=== PATIENT | male | born 1950 | race Caucasian/White ===

== ENCOUNTER 2019-09-01 07:54 | Outpatient (CLI) | payer MEDICARE, BC, SELFPAY ==
[2019-09-01 08:57] LABS: Basophils % 0.3 %; Eosinophils # 0.1 10^3/uL (0.0-0.8); Eosinophils % 1.4 %; Hematocrit 49.3 % (42.0-52.0); Hemoglobin 15.9 g/dL (11.7-16.6); Lymphocytes # 1.5 10^3/uL (0.8-4.8); Lymphocytes % 23.9 %; Mean Corpuscular HGB Conc 32.3 g/dL (30.0-36.0); Mean Corpuscular Hemoglobin 29.8 pg (28.0-34.0); Mean Corpuscular Volume 92.5 fL (80-94); Mean Platelet Volume 10.9 fL (7.4-10.4); Monocytes # 0.4 10^3/uL (0.2-0.9); Monocytes % 6.1 %; Neutrophils # 4.3 10^3/uL (1.8-7.7); Neutrophils % 68.1 %; Nucleated Red Blood Cells % 0 %; Platelet Count 202 10^3/cmm (130-400); Red Blood Count 5.33 10^6/uL (4.1-5.3); Red Cell Distribution Width 13.1 % (12.1-15.1); White Blood Count 6.4 10^3/uL (4.0-10.0)
[2019-09-01 09:19] LABS: Carcinoembryonic Antigen 2.8 ng/mL (0.0-4.7)
[2019-09-01 09:31] LABS: Alanine Aminotransferase 26 U/L (0-41); Albumin Level 4.2 g/dL (3.5-5.2); Alkaline Phosphatase 79 IU/L (40-130); Anion Gap 17.1 (5-19); Blood Urea Nitrogen 14 mg/dL (8-23); Calcium 8.9 mg/dL (8.5-10.5); Carbon Dioxide 23 mmol/L (22-29); Chloride 104 mmol/L (98-107); Chol HDL Ratio 2.79 mg/dL (1.0-5.00); Cholesterol 95 mg/dL (0-200); Globulin 2.7 g/dL (1.3-4.6); Glomerular Filtration Rate 74.1 mL/min (90-130); Glucose 121 mg/dL (65-115); HDL Cholesterol 34 mg/dL (60-100); LDL Cholesterol Calculated 47 mg/dL (50-129); LDL HDL Ratio 1.38 RATIO (0.00-3.22); Osmolality Calculated 287 mOsm/kg (285-295); Potassium 4.1 mmol/L (3.5-5.1); Sodium 140 mmol/L (136-145); Total Bilirubin 0.8 mg/dL (0.15-1.2); Total Protein 6.9 g/dL (6.6-8.7); Triglycerides 70 mg/dL (0-150)
[2019-09-01 09:48] LABS: Aspartate Amino Transferase 27 U/L (0-40)
--- NOTE | 2019-09-04 10:17 | ONC FU_ITS ---
Dr. Palomo Patient Follow-Up Note Patient: Payam Oliveros Unit #: [id number]: 1950 Dicatated By: Joselito Palomo M.D.Date of Visit:Sep 01, 2019 Onc Med Follow-up/Prog Note Chief Complaint: Ampullary carcinoma. 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 He had presented in November 2013 with painless jaundice. The initial imaging studies reportedly showed a dilated common bile duct but no identifiable mass. Endoscopic ultrasound however did show evidence of an ampullary mass which was confirmed by biopsy to be adenocarcinoma. On 02/17/2014 he underwent pancreaticoduodenectomy. 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 There was invasion through the duodenum muscularis propria into subserosal fibroadipose tissue. There was no involvement in the pancreatic parenchyma, and the margins were noted to be negative for tumor. There was evidence of lymphovascular space invasion and perineural invasion. There was involvement in 3 of 12 lymph nodes with associated extranodal extension. One additional hepatic artery lymph node was negative. He was given postoperative adjuvant chemotherapy with gemcitabine/oxaliplatin. The initial plan was to administer treatments every 2 weeks for a total of 8 cycles. He did experience some myelosuppression with the chemotherapy, necessitating treatment delays. As of 07/29/14 he had completed his seventh cycle of treatment. At that point it was opted to forego any further adjuvant chemotherapy and proceed with chemoradiation. He started treatment on 09/13/2014 utilizing Xeloda for chemosensitization. He completed radiation on 10/26/2014 to a total radiation dose of 5400 cGy. He has since then been followed on observation/expectant management. Thus far there has been no evidence of recurrence. His other medical illnesses include hypertension and coronary artery disease. His general health, though, had been very good prior to the discovery of the cancer. He had previously chewed tobacco, but he has never smoked. INTERIM HISTORY: Surveillance CT of the abdomen/pelvis on 12/02/2017 showed postoperative changes of his Whipple procedure. The prostate was noted to be enlarged with calcification. There was no evidence of recurrent or metastatic disease. He continued on observation/expectant management. He is seen for a scheduled visit. He has been feeling good generally. He has good energy and activity tolerance. His ECOG score is 0. He describes his appetite as mediocre, but his weight is stable. He does not have fever or night sweats. He has no shortness of breath, cough, or chest pain. He has no GI or complaints. He does have some back trouble, which is chronic. He has no other joint or bone pain. He still has some numbness/tingling in his feet from his previous chemotherapy. Medications: Aspirin 1 Tablet (of 81 mg) Tablet Oral daily, Lopressor 1 (25 mg) Tablet Oral b.i.d., Pancrelipase ([id number]-[id number]-Xwrr) 1 Tablet (of 47209 Units) Capsule Delayed Release Particles Oral t.i.d., Simvastatin 1 Tablet (of 40 mg) Oral daily, Vitamin B6 1 Tablet (of 200 mg) Oral daily Allergies: Tolectin (discountinued drug brand) Review of Systems: Constitutional - He is feeling really good. He has good energy and he has normal activity. His appetite is good and weight is stable. No fever, night sweats, or hot flashes. ECOG score is 0, ENMT - No sinus congestion/drainage. No mouth sores. No sore throat or difficulty swallowing, Hematologic/Lymphatic - He bruises easily, Respiratory - No shortness of breath. No cough. No pleuritic pain or hemoptysis, Cardiovascular - No angina pain. No palpitations, Gastrointestinal - No nausea or vomiting. No heartburn or acid reflux. No diarrhea or constipation. No blood in the stool or black stools, Genitourinary (M) - No dysuria or hematuria. No urinary frequency. No urgency or incontinence, Musculoskeletal - He has some back pain, which is chronic, Integumentary - No skin complications, Neurologic - No headache or dizziness. He has neuropathy in his feet. No other focal neurologic symptoms, Psychiatric - No anxiety or depression. No insomnia. Vital Signs: Performed on Sep 01, 2019 09:18 Height - 69.00 in Weight - 200.0 lbs (LOW) BSA - 2.07 sq.m BMI - 29.54 Temperature - 97.6 F (LOW) Pulse - 57 /min (LOW) Respiration - 18 /min BP - 196/95 mm(hg) (HIGH) O2 Sat - 97 % Pain - 0 Physical Examination: Constitutional - He looks good generally, Eyes - Sclerae nonicteric. Conjunctivae clear, ENMT - No lesions noted in the oral cavity, Hematologic/Lymphatic - No cervical, clavicular, or axillary adenopathy, Respiratory - Lungs are clear, Cardiovascular - Heart rhythm is regular. There is no murmur, gallop, or rub noted, Abdomen - Soft. Liver and spleen are not enlarged. There is no abdominal mass or ascites noted and there is no inguinal adenopathy, Extremities - No edema. Pedal pulses are palpable bilaterally, Neurologic - No focal neurologic deficits noted. Lab/Imaging: Test performed on Sep 01, 2019 08:10 Cholesterol, Total 95 mg/dL Sodium 140 mmol/L Potassium 4.1 mmol/L Triglycerides 70 mg/dL Chloride 104 mmol/L LDL Cholesterol 47 mg/dL CO2 23 mmol/L Anion Gap 17.1 HDL Cholesterol 34 mg/dL BUN 14 mg/dL Cholesterol/HDL Ratio 2.79 mg/dL Creatinine 1.0 mg/dL LDL / HDL Ratio 1.38 RATIO Cr Clearance (Est) 89.4600 mL/min eGFR 74.1 mL/min Glucose 121 mg/dL Calcium 8.9 mg/dL Protein, Total 6.9 g/dL Albumin 4.2 g/dL Globulin 2.7 g/dL Bilirubin, Total 0.8 mg/dL ALT (SGPT) 26 U/L AST (SGOT) 27 U/L Alkaline Phosphatase 79 IU/L WBC 6.4 10 3/uL RBC 5.33 10 6/uL HGB 15.9 g/dL HCT 49.3 % MCV 92.5 fL MCH 29.8 pg MCHC 32.3 g/dL RDW 13.1 % Platelet Count 202 10 3/cmm MPV 10.9 fL Neutrophils 4.3 10 3/uL Lymphocytes 1.5 10 3/uL Monocytes 0.4 10 3/uL Eosinophils 0.1 10 3/uL Basophils 0.0 10 3/uL Neutrophil % 68.1 % Lymphocyte % 23.9 % Monocyte % 6.1 % Eosinophil % 1.4 % Basophils % 0.3 % NRBC % 0 % CA 19-9 12.30 U/mL CEA 2.8 ng/mL Impression: 1. 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 He underwent complete resection with pancreaticoduodenectomy on 02/17/2014. 2. He received adjuvant chemotherapy with 7 cycles of gemcitabine/oxaliplatin, completed 07/29/2014. He developed anorexia, fatigue and proximal muscle weakness from the adjuvant chemotherapy. 3. He then underwent chemoradiation utilizing Xeloda for chemosensitization. He completed treatment on 10/26/2014 to a total radiation dose of 5400 cGy. His other medical illnesses include: 4. Hypertension. 5. Coronary artery disease. 6. Anxiety/depression. He continued on observation/expectant management following completion of the radiation. During follow-up he had gradual recovery of his activity tolerance/performance status. He had some ongoing GI problems related to his surgery and radiation, but those had gradually improved. 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 Overall he has been doing very well clinically, thus far with no evidence of recurrence of the ampullary cancer. Plan: He remains on observation/expectant management. He will continue his regular follow-up with Dr. Davila. I will just see him again in 1 year. Signed By: Joselito Palomo M.D. <<Signature on File>>
== END 2019-09-01 07:55 | disposition home or self-care (01) ==
LOC: ONCMED 08:00
PROVIDERS: PCP Family Medicine; Visit Provider Internal Medicine Medical Oncology
DX: Z08 Encounter for follow-up examination after completed treatment for malignant neoplasm (principal); Z85.068 Personal history of other malignant neoplasm of small intestine; Z90.49 Acquired absence of other specified parts of digestive tract; Z92.21 Personal history of antineoplastic chemotherapy; I10 Essential (primary) hypertension; I25.10 Atherosclerotic heart disease of native coronary artery without angina pectoris; F41.8 Other specified anxiety disorders
CPT/HCPCS: 36415; 80053; 80061; 82378; 85025; 86301; 99214; G0463

== ENCOUNTER 2019-09-29 08:59 | Outpatient (CLI) | payer MEDICARE, BC, SELFPAY ==
[2019-09-29 09:49] LABS: Basophils % 0.2 %; Eosinophils # 0.1 10^3/uL (0.0-0.8); Hematocrit 51.4 % (42.0-52.0); Hemoglobin 16.2 g/dL (11.7-16.6); Lymphocytes # 1.6 10^3/uL (0.8-4.8); Lymphocytes % 24.8 %; Mean Corpuscular HGB Conc 31.5 g/dL (30.0-36.0); Mean Corpuscular Hemoglobin 29.4 pg (28.0-34.0); Mean Corpuscular Volume 93.3 fL (80-94); Mean Platelet Volume 10.5 fL (7.4-10.4); Monocytes # 0.5 10^3/uL (0.2-0.9); Monocytes % 7.1 %; Neutrophils # 4.34 10^3/uL (1.8-7.7); Neutrophils % 65.7 %; Nucleated Red Blood Cells % 0 %; Platelet Count 186 10^3/cmm (130-400); Red Blood Count 5.51 10^6/uL (4.1-5.3); Red Cell Distribution Width 12.8 % (12.1-15.1); White Blood Count 6.6 10^3/uL (4.0-10.0)
[2019-09-29 10:15] LABS: 25 Hydroxy Vitamin D 20 ng/mL (30-100); Cancer Antigen 19 9 12.46 U/mL (0-35); Carcinoembryonic Antigen 2.7 ng/mL (0.0-4.7); Thyroid Stimulating Hormone 2.23 uIU/mL (0.27-4.20)
[2019-09-29 10:27] LABS: Alanine Aminotransferase 32 U/L (0-41); Albumin Level 4.2 g/dL (3.5-5.2); Alkaline Phosphatase 78 IU/L (40-130); Anion Gap 14.5 (5-19); Aspartate Amino Transferase 27 U/L (0-40); Blood Urea Nitrogen 15 mg/dL (8-23); Calcium 8.5 mg/dL (8.5-10.5); Carbon Dioxide 27 mmol/L (22-29); Chloride 103 mmol/L (98-107); Globulin 2.9 g/dL (1.3-4.6); Glomerular Filtration Rate 73.9 mL/min (90-130); Glucose 111 mg/dL (65-115); Osmolality Calculated 287 mOsm/kg (285-295); Potassium 4.5 mmol/L (3.5-5.1); Sodium 140 mmol/L (136-145); Total Bilirubin 0.8 mg/dL (0.15-1.2); Total Protein 7.1 g/dL (6.6-8.7)
== END 2019-09-29 09:00 | disposition home or self-care (01) ==
LOC: ONCMED 09:04
PROVIDERS: PCP Family Medicine; Visit Provider Nurse Practitioner
DX: C24.1 Malignant neoplasm of ampulla of Vater (principal); E55.9 Vitamin D deficiency, unspecified
CPT/HCPCS: 80053; 82306; 82378; 84443; 85025; 86301

== ENCOUNTER 2020-05-11 14:05 | Outpatient (CLI) | payer MEDICARE, BC, SELFPAY ==
[2020-05-11 15:28] LABS: Basophils % 0.3 %; Eosinophils # 0.1 10^3/uL (0.0-0.8); Eosinophils % 1.3 %; Hematocrit 48.1 % (42.0-52.0); Hemoglobin 15.7 g/dL (11.7-16.6); Lymphocytes # 1.6 10^3/uL (0.8-4.8); Mean Corpuscular HGB Conc 32.6 g/dL (30.0-36.0); Mean Corpuscular Hemoglobin 30.3 pg (28.0-34.0); Mean Corpuscular Volume 92.9 fL (80-94); Mean Platelet Volume 10.5 fL (7.4-10.4); Monocytes # 0.4 10^3/uL (0.2-0.9); Monocytes % 6.3 %; Neutrophils # 4.18 10^3/uL (1.8-7.7); Neutrophils % 66.9 %; Nucleated Red Blood Cells % 0 %; Platelet Count 201 10^3/cmm (130-400); Red Blood Count 5.18 10^6/uL (4.1-5.3); Red Cell Distribution Width 12.8 % (12.1-15.1); White Blood Count 6.2 10^3/uL (4.0-10.0)
[2020-05-11 16:06] LABS: Carcinoembryonic Antigen 2.6 ng/mL (0.0-4.7)
[2020-05-11 16:17] LABS: Alanine Aminotransferase 33 U/L (0-41); Albumin Level 4.1 g/dL (3.5-5.2); Alkaline Phosphatase 89 IU/L (40-130); Anion Gap 13.2 (5-19); Aspartate Amino Transferase 26 U/L (0-40); Blood Urea Nitrogen 16 mg/dL (8-23); Calcium 8.5 mg/dL (8.5-10.5); Carbon Dioxide 27 mmol/L (22-29); Chloride 107 mmol/L (98-107); Globulin 2.6 g/dL (1.3-4.6); Glomerular Filtration Rate 73.9 mL/min (90-130); Glucose 150 mg/dL (65-115); Osmolality Calculated 300 mOsm/kg (285-295); Potassium 4.2 mmol/L (3.5-5.1); Sodium 143 mmol/L (136-145); Total Bilirubin 0.4 mg/dL (0.15-1.2); Total Protein 6.7 g/dL (6.6-8.7)
--- NOTE | 2020-05-22 21:51 | ONC FU_ITS ---
[facility] Patient Note Patient: Payam Oliveros Unit #: [id number]: 1950 Dictated By: Taryn GarciaDate of Visit: May 11, 2020 Onc MED Follow-Up/Prog Note Chief Complaint: Ampullary carcinoma. 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 He had presented in November 2013 with painless jaundice. The initial imaging studies reportedly showed a dilated common bile duct but no identifiable mass. Endoscopic ultrasound however did show evidence of an ampullary mass which was confirmed by biopsy to be adenocarcinoma. On 02/17/2014 he underwent pancreaticoduodenectomy. 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 There was invasion through the duodenum muscularis propria into subserosal fibroadipose tissue. There was no involvement in the pancreatic parenchyma, and the margins were noted to be negative for tumor. There was evidence of lymphovascular space invasion and perineural invasion. There was involvement in 3 of 12 lymph nodes with associated extranodal extension. One additional hepatic artery lymph node was negative. He was given postoperative adjuvant chemotherapy with gemcitabine/oxaliplatin. The initial plan was to administer treatments every 2 weeks for a total of 8 cycles. He did experience some myelosuppression with the chemotherapy, necessitating treatment delays. As of 07/29/14 he had completed his seventh cycle of treatment. At that point it was opted to forego any further adjuvant chemotherapy and proceed with chemoradiation. He started treatment on 09/13/2014 utilizing Xeloda for chemosensitization. He completed radiation on 10/26/2014 to a total radiation dose of 5400 cGy. He has since then been followed on observation/expectant management. Thus far there has been no evidence of recurrence. His other medical illnesses include hypertension and coronary artery disease. His general health, though, had been very good prior to the discovery of the cancer. He had previously chewed tobacco, but he has never smoked. INTERIM HISTORY: Surveillance CT of the abdomen/pelvis on 12/02/2017 showed postoperative changes of his Whipple procedure. The prostate was noted to be enlarged with calcification. There was no evidence of recurrent or metastatic disease. He continued on observation/expectant management. Mr. Oliveros is here today for an unscheduled visit. He called in requesting to be seen as he is having concerns of more bloating and pain with eating. He states he feels he is having more abdominal pressure. He states he is just concerned that he may have his cancer again. He states his energy has been okay but has declined somewhat. He denies any fever or chills. He denies any nausea or vomiting. He states his bowels are moving well he just feels that he is more bloated after eating and is concerned about his blood counts. He states he is taking 40,000 units of enzymes before each meal and feels he is tolerating this well. He denies any acid reflux. He denies any other abdominal pain. He states the pressure is just more around my stomach and lower intestine . He denies constipation or diarrhea he denies any urinary symptoms. He has had no lower extremity edema. He denies any evidence of jaundice. His ECOG is 1. He states his chronic back pain is the same and is no worse no better. Past Medical History: Coronary artery disease Dyslipidemia Gastroesophageal reflux Hypertension Past Surgical History: Colonoscopy Coronary angioplasty/stent placement Lumbar laminectomy in 1967 and in 1984 Flu Vaccine in 2017 - Given in left deltoid./lc Pancreaticoduodenectomy in 2013 Thoracotomy for resection of benign left pulmonary nodule in 1997 Allergies: Tolectin (discountinued drug brand) Medications: Aspirin 1 Tablet (of 81 mg) Tablet Oral daily Lopressor 1 (25 mg) Tablet Oral b.i.d. Pancrelipase (Xyl-[id number]-Tfdk) 1 Tablet (of 78622 Units) Capsule Delayed Release Particles Oral t.i.d. Simvastatin 1 Tablet (of 40 mg) Oral daily Vitamin B6 1 Tablet (of 200 mg) Oral daily Family History: Mr. Oliveros's mother at age 75: Lung Cancer. Mr. Oliveros's father at age 75: Throat Cancer. Father of throat cancer at age 75. Mother of lung cancer, also at age 75. Social History: Mr. Oliveros is and he is a disabled. Mr. Oliveros has never smoked. He is an active drinker.Mr. Oliveros reports no contact with hazardous material. Mr. Oliveros reports the following support systems: lives with spouse, significant other, family, or friends, lives in own house, supportive family/friends willing to assist with needs, and adequate transportation available for expected visits. His diet consists of regular meals. He indicates his activity level as: daily activities. No history of smoking. Did chew tobacco for many years. He has no history of smoking, but he did chew tobacco for many years. Pt states he has a drink just about every night . Review Of Symptoms: Constitutional Denies fevers, chills, night sweats, excessive fatigue or weight loss. Allergic/Immunologic No reactions. Eyes Denies significant visual changes. No diplopia. No amaurosis. ENMT Denies changes in hearing, sore throat, mouth sores, difficulty or changes in swallowing ability, and/or sinus drainage. Endocrine No diabetes, thyroid disease or hormone replacement. Denies hot flashes or night sweats. Hematologic/Lymphatic Denies easy bruising or bleeding. The patient denies any tender or palpable lymph nodes. Respiratory Denies dyspnea on exertion, chest pain, cough or hemoptysis. Denies orthopnea. Cardiovascular Denies anginal chest pain, palpitations or orthopnea. Gastrointestinal Denies nausea, vomiting, diarrhea, GI bleeding, or constipation. Denies change in bowel habits and/or stool color, no heartburn or early satiety. He feels like he is having more abdominal bloating and pressure . Genitourinary (M) Denies hematuria, dysuria, increased frequency, urgency, hesitancy or incontinence. Musculoskeletal Denies joint pain, swelling or redness. No decreased range of motion. Integumentary Denies chronic rashes, inflammation, ulcerations or skin changes. Neurologic Denies headache, blurred vision, and no areas of focal weakness or numbness. Normal gait. No sensory problems. Psychiatric Denies insomnia, depression, keith or mood swings. Vital Signs: Performed on May 11, 2020 14:35 Height - 69.00 in Weight - 199.2 lbs (LOW) BSA - 2.06 sq.m BMI - 29.42 Temperature - 98.1 F (LOW) Pulse - 78 /min Respiration - 19 /min BP - 173/106 mm(hg) (HIGH) O2 Sat - 97 % Pain - 0,1 - No physically strenuous activity, but ambulatory and able to carry out light or sedentary work (e.g. office work, light house work). (ECOG) Physical Examination: Constitutional Alert, oriented, no acute distress. Skin pink, warm and dry. Head Normocephalic; atraumatic. Eyes Conjunctivae and sclerae are clear and without icterus. Pupils are reactive and equal. Neck Supple without masses or thyromegaly. No jugular venous distension. Hematologic/Lymphatic No petechiae or purpura. No tender or palpable lymph nodes in the cervical, supraclavicular, or axillary area. Respiratory Lungs are clear to auscultation without rhonchi or wheezing. Cardiovascular Regular rate and rhythm of heart without murmurs,clicks, gallops or rubs. Abdomen Non-tender (slight tenderness in epigastric region but none elsewhere), non-distended, no masses, ascites. Good bowel sounds noted in all quads. No guarding or rebound tenderness. No pulsatile masses. Back/Spine Non-tender to palpation. Extremities No visible deformities, no cyanosis, clubbing or edema. Musculoskeletal No tenderness or swelling, normal range of motion without obvious weakness. Integumentary No rashes or lesions. Neurologic No sensory or motor deficits, normal cerebellar function, normal gait. Psychiatric Alert and oriented times three. Coherent speech. Verbalizes understanding of our discussions today. Laboratory:Test performed on May 11, 2020 15:05 Sodium 143 mmol/L Potassium 4.2 mmol/L Chloride 107 mmol/L CO2 27 mmol/L Anion Gap 13.2 BUN 16 mg/dL Creatinine 1.0 mg/dL Cr Clearance (Est) 87.8500 mL/min eGFR 73.9 mL/min Glucose 150 mg/dL Osmolality - Calculated 300 mOsm/kg Calcium 8.5 mg/dL Protein, Total 6.7 g/dL Albumin 4.1 g/dL Globulin 2.6 g/dL Bilirubin, Total 0.4 mg/dL ALT (SGPT) 33 U/L AST (SGOT) 26 U/L Alkaline Phosphatase 89 IU/L WBC 6.2 10 3/uL RBC 5.18 10 6/uL HGB 15.7 g/dL HCT 48.1 % MCV 92.9 fL MCH 30.3 pg MCHC 32.6 g/dL RDW 12.8 % Platelet Count 201 10 3/cmm MPV 10.5 fL Neutrophils 4.18 10 3/uL Lymphocytes 1.6 10 3/uL Monocytes 0.4 10 3/uL Eosinophils 0.1 10 3/uL Basophils 0.0 10 3/uL Neutrophil % 66.9 % Lymphocyte % 25.0 % Monocyte % 6.3 % Eosinophil % 1.3 % Basophils % 0.3 % NRBC % 0 % CA 19-9 14.60 U/mL CEA 2.6 ng/mL PSA 2.620 ng/mL Impression: 1. 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 His other medical illnesses include: 4. Hypertension. 5. Coronary artery disease. 6. Anxiety/depression. Plan: PROBLEMS ADDRESSED TODAY 1. Moderately to poorly differentiated ampullary adenocarcinoma biliary type. He underwent complete resection with pancreaticoduodenectomy on 02/17/2014. He received adjuvant chemotherapy with 7 cycles of gemcitabine oxaliplatin completed on July 29, 2014. He had anorexia fatigue and proximal muscle weakness from the adjuvant chemotherapy. He then underwent chemoradiation utilizing Xeloda for chemosensitization and completed treatment on 10/26/2014 to toleration dose of 5400 cGy. Since then he has had observant expectant management and has had no signs of recurrence of the ampullary cancer. 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 Mr. Oliveros now presents with concerns of abdominal bloating and pressure and pain with eating. He denies any gastritis symptoms. He states he has been taking his enzymes 40,000 units before each meal. A. I have requested CBC CMP PSA CEA and CA 19-9 to be drawn today. B. I have requested a CT of the abdomen and pelvis with contrast given that his renal function is normal. His last creatinine at our office was on September 29, 2019 at which time it was 1.0. C. We will determine follow-up after we see the results of his labs and CT. D. Mr. Oliveros was instructed to contact us in the interim should questions or problems arise. Signed By: Taryn Garcia-, AOP Joselito Palomo MD <<Signature on File>>
== END 2020-05-11 14:06 | disposition home or self-care (01) ==
LOC: ONCMED 14:07
PROVIDERS: PCP Family Medicine; Visit Provider Nurse Practitioner
DX: Z08 Encounter for follow-up examination after completed treatment for malignant neoplasm (principal); Z85.068 Personal history of other malignant neoplasm of small intestine; N40.0 Benign prostatic hyperplasia without lower urinary tract symptoms; G62.0 Drug-induced polyneuropathy; T45.1X5S Adverse effect of antineoplastic and immunosuppressive drugs, sequela; Z92.21 Personal history of antineoplastic chemotherapy
CPT/HCPCS: 80053; 82378; 84153; 85025; 86301; 99214

== ENCOUNTER 2020-05-24 08:53 | Outpatient (CLI) | payer MEDICARE, BC, SELFPAY ==
--- NOTE | 2020-05-24 09:16 | CT_ITS ---
WS: [id number] Exam: CT abdomen pelvis w con* [id number] Date/Time of Exam: 05/24/2020 9:16 AM Reason For Exam: AMPILLARY CANCER, LEFT UPPER QUADRANT PAIN DLP: 1201.[address] scans at [facility] use at least one of these dose optimization techniques: automat ed exposure control; mA and/or kV adjustment per patient size (includes targeted exams where dose is matched to clinical indication); or iterative reconstruction. Comparison 12/12/2018. Chronic appearing pulmonary parenchymal scarring in the left lower lobe stable in appearance. There i s a cyst in left lobe liver unchanged. There are additional tiny cysts in the right hepatic lobe. The spleen is unremarkable. Status post Whipple procedure noted which is unchanged in appearance. No rec urrent pancreatic mass identified. The portal vein and IVC are patent. The abdominal aorta is normal in caliber. Normal adrenal glands. The kidneys function normally. Subcentimeter left renal cysts are noted. No lymphadenopathy or ascites. The gallbladder is absent. Small bowel loops are normal in bakari lucía. No free air. No sign of acute appendix. Uncomplicated sigmoid diverticulosis. No lymphadenopathy or mass in the pelvis. Prostatomegaly. Urinary bladder is almost completely collapsed but no obvious abnormality. Moderate-sized fat filled left inguinal hernia. Very small fat filled right inguinal he rnia. No destructive bone lesions are seen. CT/CT abdomen pelvis w con* [id number] IMPRESSION: 1. Status post Whipple procedure. No recurrent mass seen in the region of the p ancreatic bed. No lymphadenopathy or ascites. 2. Uncomplicated colonic diverticulosis. 3. Left hepatic cyst unchanged in appearance. 2.2 cm at greatest diameter. 4. Prostatomegaly. 5. Overall, stable exam since previous study.
[2020-05-24] MEDS: iohexol 300 mg/mL 50 mL Btl PO (09:24)
[2020-05-24] MEDS: iohexol 300 mg/mL 100 mL Btl IV (10:35)
== END 2020-05-24 08:54 | disposition home or self-care (01) ==
LOC: RADWPI 08:54
PROVIDERS: PCP Family Medicine; Visit Provider Nurse Practitioner
DX: C24.1 Malignant neoplasm of ampulla of Vater (principal); R10.12 Left upper quadrant pain; N40.0 Benign prostatic hyperplasia without lower urinary tract symptoms; K76.89 Other specified diseases of liver; K57.90 Diverticulosis of intestine, part unspecified, without perforation or abscess without bleeding
CPT/HCPCS: 74177; Q9967

== ENCOUNTER → 2021-06-13 12:37 | Outpatient (BNVA) | payer MEDICARE, BC, SELFPAY | PROVIDERS: PCP Family Medicine; Visit Provider Otolaryngology | DX: H61.23 Impacted cerumen, bilateral (principal) | CPT/HCPCS: 69210; 99212 ==

== ENCOUNTER → 2021-09-20 13:04 | Outpatient (BNVA) | payer MEDICARE, BC, SELFPAY | PROVIDERS: PCP Family Medicine; Visit Provider Internal Medicine | DX: I25.10 Atherosclerotic heart disease of native coronary artery without angina pectoris (principal); R00.2 Palpitations; I10 Essential (primary) hypertension; E78.5 Hyperlipidemia, unspecified | CPT/HCPCS: 99203; 99204 ==

== ENCOUNTER 2021-11-14 13:08 | Outpatient (CLI) | payer MEDICARE, BC, SELFPAY ==
--- NOTE | 2021-11-14 13:45 | USCV_ITS ---
Payam Oliveros Age: 71 Gender: M : 1950 Exam Date: 11/14/2021 13:57 Ordering Phys: Gaston Martinez M.D ([email or web address]) Technologist: [place] [facility] [place]: chest pain BP: 141 / 90 HR: 123 Rhythm: Sinus Technical Quality: Adequate MEASUREMENTS (Male / Female) Normal Values 2D ECHO LV Diastolic Diameter PLAX 2.8 cm 4.2 - 5.9 / 3.9 - 5.3 cm LV Systolic Diameter PLAX 1.8 cm IVS Diastolic Thickness 1.2 cm 0.6 - 1.0 / 0.6 - 0.9 cm IVS Systolic Thickness 1.3 cm LVPW Diastolic Thickness 1.2 cm 0.6 - 1.0 / 0.6 - 0.9 cm LVPW Systolic Thickness 0.9 cm LVOT Diameter 2.1 cm LV Ejection Fraction 2D Teich 69.0 % LV Ejection Fraction MOD 2C 72.1 % LV Ejection Fraction 2C AL 73.3 % LA Diameter 3.8 cm M-MODE Aortic Annulus Diameter 3.8 cm LA Ao Ratio MM 1.1 MV E Point Septal Separation 0.9 cm DOPPLER AV Peak Velocity 123.0 cm/s LVOT Peak Velocity 85.0 cm/s AV Area Cont Eq vti 2.5 cm squared AV Area Cont Eq pk 2.3 cm squared MV Area PHT 2.2 cm squared Mitral E to A Ratio 1.0 MV E' Velocity 73.0 cm/s TR Peak Velocity 194.8 cm/s TR Peak Gradient 15.2 mmHg TV Peak E Velocity 105.0 cm/s Right Atrial Pressure 3.0 mmHg Pulmonary Artery Systolic Pressu 18.2 mmHg PV Peak Velocity 116.0 cm/s RV Acceleration Time 0.1 s FINDINGS Left Ventricle Left ventricle is normal in size. LV systolic function is normal with EF of 55-60%. No regional wall motion abnormalities are seen Right Ventricle Normal in size and function Right Atrium Normal in size Left Atrium Normal in size Mitral Valve Grossly normal. Mild mitral regurgitation. Aortic Valve Grossly normal. No significant stenosis or regurgitation. Tricuspid Valve Not well visualized. Trace triscuspid regurgitation. Insufficient TR jet to calculate RVSP Pulmonic Valve Not well visualized. Trace pulmonic regurgitation. Pericardium Grossly normal Aorta Normal in size IVC CONCLUSIONS Technically limited quality echocardiogram because of poor ultrasonic windows. LV systolic function is nromal with EF of 55-60% Mild mitral regurgitation Trace tricuspid regurgitation. Trace pulmonic regurgitation No comparison studies are available Gaston Martinez MD (Electronically Signed) Final Date: 25 November 2021 23:14 S
== END 2021-11-14 13:09 | disposition home or self-care (01) ==
LOC: RAD 13:10
PROVIDERS: PCP Family Medicine; Visit Provider Internal Medicine
DX: I08.1 Rheumatic disorders of both mitral and tricuspid valves (principal); R07.9 Chest pain, unspecified
CPT/HCPCS: 93306

== ENCOUNTER → 2021-12-20 10:12 | Outpatient (BNVA) | payer MEDICARE, BC, SELFPAY | PROVIDERS: PCP Family Medicine; Visit Provider Otolaryngology | DX: H61.23 Impacted cerumen, bilateral (principal) | CPT/HCPCS: 99213 ==

== ENCOUNTER 2022-02-05 12:27 | Outpatient (CLI) | payer MEDICARE, BC, SELFPAY ==
--- NOTE | 2022-02-05 12:35 | XR_ITS ---
WS: [id number] EXAMINATION: XR cervical spine 3V* [id number] Cervical spine 3 views REASON FOR EXAM: CERVICALGIA/NECK PAIN COMPARISON: None available. FINDINGS: There is no sign of acute fracture or subluxation. There is anterior subluxation of C4 compared to C3 of approximately 2 mm. There is moderate narrowing of C3-4 disc space. Vertebral body heights are ma intained. The cervical bony alignment and osseous densities appear normal. There is no prevertebral soft tissue change. XR/XR cervical spine 3V* [id number] IMPRESSION: Changes described at C3-4 probably degenerative but could be in part posttrauma tic and likely chronic
== END 2022-02-05 12:28 | disposition home or self-care (01) ==
LOC: RAD 12:30
PROVIDERS: PCP Family Medicine; Visit Provider Family Medicine
DX: M54.2 Cervicalgia (principal)
CPT/HCPCS: 72040

== ENCOUNTER 2022-03-07 13:02 | Outpatient (CLI) | payer MEDICARE, BC, SELFPAY ==
--- NOTE | 2022-03-07 13:11 | MR_ITS ---
WS: [id number] MRI CERVICAL SPINE NONCONTRAST TECHNIQUE: Sagittal T1, T2 and STIR imaging. Axial T2, gradient, and fiesta imaging. CLINICAL INFORMATION: NECK PAIN COMPARISON: None. FINDINGS: Normal cervical alignment. Slight retrolisthesis C3 on C4. No high-grade central canal stenosis. Cord signal is normal. C2-C3: Moderate facet arthropathy with LEFT facet effusion and periarticular edema compatible with sy novitis. Recommend correlation for LEFT upper neck pain. No significant disc bulging. Foramen appear patent. C3-C4: Slight retrolisthesis. Disc osteophyte complex with endplate ridging. Indentation on cervical cord with mild central canal stenosis. Moderate facet arthropathy. Mild to moderate LEFT and mild RIG HT bony foraminal narrowing. C4-C5: No significant disc bulging. Moderate facet arthropathy. Mild to moderate LEFT and mild RIGHT bony foraminal narrowing. Spinal canal is patent. C5-C6: Slight retrolisthesis C5 on C6. Moderate facet arthropathy. Mild LEFT and no significant RIGHT foraminal narrowing. Spinal canal is patent. C6-C7: Mild disc osteophyte complex with endplate ridging. Mild LEFT greater than RIGHT bony foramina l narrowing. Spinal canal is patent. Mild facet arthropathy. C7-T1: No significant disc bulging. Spinal canal and foramen are patent. Partially visualized RIGHT thyroid goiter. This can be further evaluated with ultrasound. A few reten tion cysts in the maxillary sinuses partially visualized. MR/MR cervical spin wo con* [id number] IMPRESSION: 1. Moderate LEFT facet arthropathy C2-C3 with a small facet effusion and peria rticular edema compatible with synovitis. Recommend correlation with LEFT upper axial neck pain. 2. Mild central canal stenosis C3-C4 due to slight retrolisthesis in combinati on with disc osteophyte complex. Slight indentation on the cervical cord. 3. Mild to moderate bony foraminal narrowing worse at LEFT C3-C4, LEFT C4-C5, LEFT C5-C6 and LEFT C6-C7. 4. Moderate facet arthropathy C3-C4, LEFT C4-C5, and mild to moderate bilatera l C5-C6. 5. Partially visualized RIGHT thyroid goiter. This can be further evaluated wi ultrasound.
== END 2022-03-07 13:03 | disposition home or self-care (01) ==
LOC: RAD 13:04
PROVIDERS: PCP Family Medicine; Visit Provider Family Medicine
DX: M47.812 Spondylosis without myelopathy or radiculopathy, cervical region (principal); M48.02 Spinal stenosis, cervical region
CPT/HCPCS: 72141

== ENCOUNTER → 2022-03-22 14:31 | Outpatient (BNVA) | payer MEDICARE, SELFPAY | PROVIDERS: PCP Family Medicine; Visit Provider Internal Medicine | DX: I25.10 Atherosclerotic heart disease of native coronary artery without angina pectoris (principal); I10 Essential (primary) hypertension; E78.5 Hyperlipidemia, unspecified | CPT/HCPCS: 99214 ==

== ENCOUNTER → 2022-06-05 09:12 | Outpatient (BNVA) | payer MEDICARE, SELFPAY | PROVIDERS: PCP Family Medicine; Referring Provider Family Medicine; Visit Provider Anesthesiology Pain Medicine | DX: M47.812 Spondylosis without myelopathy or radiculopathy, cervical region (principal); M50.90 Cervical disc disorder, unspecified, unspecified cervical region | CPT/HCPCS: 99204 ==

== ENCOUNTER 2022-06-16 16:24 | Emergency (ER) | payer MEDICARE, SELFPAY ==
[2022-06-16 16:28] VITALS: BP 184/99; PULSE 92; TEMP 36.6; O2SAT 96; BMI 30.1
[2022-06-16 17:28] LABS: Basophils % 0.3 %; Eosinophils # 0.1 10^3/uL (0.0-0.8); Eosinophils % 0.6 %; Hematocrit 48.6 % (42.0-52.0); Hemoglobin 15.9 g/dL (11.7-16.6); Lymphocytes # 1.6 10^3/uL (0.8-4.8); Lymphocytes % 17.1 %; Mean Corpuscular HGB Conc 32.7 g/dL (30.0-36.0); Mean Corpuscular Hemoglobin 29.6 pg (28.0-34.0); Mean Corpuscular Volume 90.5 fl (80-94); Mean Platelet Volume 10.1 fL (7.4-10.4); Monocytes # 0.7 10^3/uL (0.2-0.9); Monocytes % 7.6 %; Neutrophils % 74.1 %; Nucleated Red Blood Cells % 0 %; Platelet Count 215 10^3/cmm (130-400); Red Blood Count 5.37 10^6/uL (4.1-5.3); White Blood Count 9.3 10^3/uL (4.0-10.0)
[2022-06-16 17:54] LABS: Lactic Sepsis W/Reflex 1.3 mmol/L (0.5-2.2)
[2022-06-16 17:56] LABS: Alanine Aminotransferase 28 U/L (0-41); Albumin Level 4.2 g/dL (3.5-5.2); Alkaline Phosphatase 88 U/L (40-130); Anion Gap 12.8 (5-19); Aspartate Amino Transferase 23 U/L (0-40); Blood Urea Nitrogen 19 mg/dL (8-23); Calcium 8.5 mg/dL (8.5-10.5); Carbon Dioxide 24 mmol/L (22-29); Chloride 102 mmol/L (98-107); Creatinine Clr Calc Pharmacy 83.3558; Globulin 2.5 g/dL (1.3-4.6); Glucose 100 mg/dL (65-115); Osmolality Calculated 282 mOsm/kg (285-295); Potassium 3.8 mmol/L (3.5-5.1); Sodium 135 mmol/L (136-145); Total Bilirubin 0.8 mg/dL (0.15-1.2); Total Protein 6.7 g/dL (6.6-8.7)
== END 2022-06-16 17:40 | disposition left against medical advice (07) ==
LOC: ER 16:30
PROVIDERS: Emergency Medicine; Emergency Provider Family Medicine; PCP Family Medicine
DX: Z53.21 Procedure and treatment not carried out due to patient leaving prior to being seen by health care provider (principal)
CPT/HCPCS: 36415; 80053; 83605; 85025; 87040; 99283

== ENCOUNTER → 2022-06-27 15:05 | Outpatient (BNVA) | payer MEDICARE, SELFPAY | PROVIDERS: PCP Family Medicine; Visit Provider Nurse Practitioner Family | DX: C44.529 Squamous cell carcinoma of skin of other part of trunk (principal); L57.0 Actinic keratosis; L21.8 Other seborrheic dermatitis; L81.4 Other melanin hyperpigmentation; D22.62 Melanocytic nevi of left upper limb, including shoulder; L57.8 Other skin changes due to chronic exposure to nonionizing radiation | CPT/HCPCS: 11102; 17004; 99214 ==

== ENCOUNTER → 2022-07-26 07:56 | Outpatient (BNVA) | payer MEDICARE, SELFPAY | PROVIDERS: PCP Family Medicine; Visit Provider Dermatology | DX: C44.529 Squamous cell carcinoma of skin of other part of trunk (principal) | CPT/HCPCS: 12032; 17313 ==

== ENCOUNTER → 2022-09-11 13:03 | Outpatient (BNVA) | payer MEDICARE, SELFPAY | PROVIDERS: PCP Family Medicine; Visit Provider Internal Medicine Cardiovascular Disease | DX: E78.5 Hyperlipidemia, unspecified (principal); I10 Essential (primary) hypertension; I25.10 Atherosclerotic heart disease of native coronary artery without angina pectoris; Z85.09 Personal history of malignant neoplasm of other digestive organs | CPT/HCPCS: 99213 ==

== ENCOUNTER → 2022-10-25 14:13 | Outpatient (BNVA) | payer MEDICARE, SELFPAY | PROVIDERS: PCP Family Medicine; Visit Provider Nurse Practitioner Family | DX: L81.4 Other melanin hyperpigmentation (principal); D22.5 Melanocytic nevi of trunk; L57.8 Other skin changes due to chronic exposure to nonionizing radiation; L57.0 Actinic keratosis; Y99.9 Unspecified external cause status; D69.2 Other nonthrombocytopenic purpura; S50.812A Abrasion of left forearm, initial encounter; Z85.828 Personal history of other malignant neoplasm of skin | CPT/HCPCS: 17004; 99214 ==

== ENCOUNTER → 2022-12-19 13:10 | Outpatient (BNVA) | payer MEDICARE, SELFPAY | PROVIDERS: PCP Family Medicine; Visit Provider Otolaryngology | DX: H61.23 Impacted cerumen, bilateral (principal) | CPT/HCPCS: 69210; 99212 ==

== ENCOUNTER → 2023-04-29 11:29 | Outpatient (BNVA) | payer MEDICARE, SELFPAY | PROVIDERS: PCP Family Medicine; Visit Provider Nurse Practitioner Family | DX: L57.8 Other skin changes due to chronic exposure to nonionizing radiation (principal); L81.4 Other melanin hyperpigmentation; L57.0 Actinic keratosis; Z85.828 Personal history of other malignant neoplasm of skin | CPT/HCPCS: 17004; 99213 ==

== ENCOUNTER → 2023-05-29 13:29 | Outpatient (BNVA) | payer MEDICARE, SELFPAY | PROVIDERS: PCP Family Medicine; Visit Provider Internal Medicine | DX: I25.10 Atherosclerotic heart disease of native coronary artery without angina pectoris (principal); R00.2 Palpitations; I10 Essential (primary) hypertension; E78.5 Hyperlipidemia, unspecified | CPT/HCPCS: 99214 ==

== ENCOUNTER → 2023-11-15 08:31 | Outpatient (BNVA) | payer MEDICARE, SELFPAY | PROVIDERS: PCP Family Medicine; Visit Provider Student in an Organized Health Care Education/Training Program | DX: M65.321 Trigger finger, right index finger (principal); M65.342 Trigger finger, left ring finger; M65.341 Trigger finger, right ring finger | CPT/HCPCS: 73130; 99204 ==

== ENCOUNTER → 2023-12-02 13:08 | Outpatient (BNVA) | payer MEDICARE, SELFPAY | PROVIDERS: PCP Family Medicine; Visit Provider Nurse Practitioner Family | DX: L57.8 Other skin changes due to chronic exposure to nonionizing radiation (principal); L82.0 Inflamed seborrheic keratosis; D48.5 Neoplasm of uncertain behavior of skin; L57.0 Actinic keratosis | CPT/HCPCS: 11102; 17000; 17110; 99213 ==

== ENCOUNTER → 2023-12-10 10:23 | Outpatient (BNVA) | payer MEDICARE, SELFPAY | PROVIDERS: PCP Family Medicine; Visit Provider Dermatology | DX: C43.62 Malignant melanoma of left upper limb, including shoulder (principal); D22.5 Melanocytic nevi of trunk; L82.1 Other seborrheic keratosis; Z85.828 Personal history of other malignant neoplasm of skin; L57.8 Other skin changes due to chronic exposure to nonionizing radiation | CPT/HCPCS: 99214 ==

== ENCOUNTER 2023-12-23 08:33 | Day surgery (SDC) | payer MEDICARE, SELFPAY ==
[2023-12-23] VITALS (8 sets, daily range): BP systolic 106–185; BP diastolic 62–108; PULSE 51–63; RESP 12–18; TEMP 36.1–36.6; O2SAT 95–99; BMI 30.5
[2023-12-23] MEDS: sodium chloride 0.9% 1,000 ML 30 ML IV (09:19)
[2023-12-23] MEDS: acetaminophen 1,000 MG/100 ML PIGGYBACK 400 MG IV (09:19)
--- NOTE | 2023-12-23 11:15 | ANES.PREANE2 ---
Pre-Anesthetic Assessment Height/Weight: Height 1.75 m Weight 93.894 kg Temp Pulse Resp BP Pulse Ox O2 Del Method 97.8 F 63 18 185/108 95 Room Air 12/23/23 08:57 12/23/23 08:57 12/23/23 08:57 12/23/23 08:57 12/23/23 08:57 12/23/23 08:57 Operation Date: 12/23/23 12:40 Proposed Procedures p Right index finger trigger release and right ring finger trigger release(Right) - Romel Gonzalez, DO [facility] anesthetic complications: None Was Beta Marcia taken within 24 hours: N/A Last intake: Intake Last Liquid Date 12/22/23 Last Liquid Time 21:30 Last Solid Date 12/22/23 Last Solid Time 21:30 Social No alcohol and No tobacco Exam alert, oriented x 3, clear to auscultation bilaterally and regular rate & rhythm Airway Mallampati: Class II Dentition: full CV/HEM Coronary Artery Disease (stent 10-15 years ago, denies any CP, CARRILLO, syncope, states able to achieve > 4 METS) and Hypertension Metabolic Hyperlipidemia Anesthetic Plan ASA status: 3 Anesthesia: MAC Risk of > 500 ml blood loss (7ml/kg in children): No Medications/Allergies Home Medications Medication Instructions Recorded Confirmed Last Taken Type aspirin 81 mg tablet,delayed 81 mg PO DAILY 08/02/20 12/20/23 12/20/23 History release metoprolol tartrate 25 mg tablet 25 mg PO BID 08/02/20 12/20/23 12/23/23 History simvastatin 40 mg tablet 40 mg PO DAILY 08/02/20 12/20/23 12/22/23 History [id number] 1 cap PO TID 03/22/22 12/20/23 12/22/23 History 40,000-126,000-168,000 unit capsule, delay rel (Zenpep) ibuprofen 200 mg tablet (IBU-200) 200 mg PO Q6H PRN Pain 06/05/22 12/20/23 12/20/23 History amlodipine 2.5 mg tablet 2.5 mg PO DAILY #90 tabs 01/07/23 12/20/23 12/23/23 Rx Allergies Allergy/AdvReac Type Severity Reaction Status Date / Time tolmetin [From Tolectin] Allergy Unknown ALGY-Hives Verified 12/23/23 08:56 Current Medications Generic Name Dose Route Start Last Admin Trade Name Liangq PRN Reason Stop Dose Admin Sodium Chloride 1,000 mls @ 30 mls/hr 12/23/23 09:00 12/23/23 09:19 Sodium Chloride 0.9% IV 12/24/23 08:59 30 mls/hr .Q24H ALMA Administration PFSH Anesthesia Medical History History of hypertension History of malignant neoplasm of ampulla of Vater History of hyperlipidemia Surgical History History of pancreatic surgery History of laminectomy History of thoracotomy History of coronary artery stent placement Social History Smoking and tobacco/nicotine status: never used tobacco/nicotine Alcohol intake: current Substance/Drug Use: never Data Anesthesia Cardiac Studies: Echocardiogram 11/14/21
--- NOTE | 2023-12-23 11:43 | W.PM.OPSFHP ---
Same Day Surgery H&P Indication for Procedure/HPI DATE OF PROCEDURE: December 23, 2023 CHIEF COMPLAINT/INDICATIONFOR SURGICAL PROCEDURE: Right index finger trigger, right ring finger trigger PREOP DIAGNOSIS: Right index finger trigger, right ring finger trigger PLANNED PROCEDURE: Operation Date: 12/23/23 12:40 Proposed Procedures p Right index finger trigger release and right ring finger trigger release(Right) - Romel Gonzalez DO Medications/Allergies* Home Medications Medication Instructions Recorded Confirmed Type aspirin 81 mg tablet,delayed 81 mg PO DAILY 08/02/20 12/20/23 History release metoprolol tartrate 25 mg tablet 25 mg PO BID 08/02/20 12/20/23 History simvastatin 40 mg tablet 40 mg PO DAILY 08/02/20 12/20/23 History [id number] 1 cap PO TID 03/22/22 12/20/23 History 40,000-126,000-168,000 unit capsule, delay rel (Zenpep) ibuprofen 200 mg tablet (IBU-200) 200 mg PO Q6H PRN Pain 06/05/22 12/20/23 History Allergies/Adverse Reactions Allergy/AdvReac Type Severity Reaction Status Date / Time tolmetin [From Tolectin] Allergy Unknown ALGY-Hives Verified 12/23/23 08:56 Current Medications: Generic Name Dose Route Start Last Admin Trade Name Freq PRN Reason Stop Dose Admin Sodium Chloride 1,000 mls @ 30 mls/hr 12/23/23 09:00 12/23/23 09:19 Sodium Chloride 0.9% IV 12/24/23 08:59 30 mls/hr .Q24H ALMA Administration Pertinent History/Comorbid Conditions* Medical History (Updated 12/02/23 @ 22:08 by oRmel Gonzalez DO) History of hypertension History of malignant neoplasm of ampulla of Vater History of hyperlipidemia Surgical History (Updated 06/13/21 @ 13:18 by Dave Chavarria MD) History of pancreatic surgery History of laminectomy History of thoracotomy History of coronary artery stent placement Social History Smoking and tobacco/nicotine status: never used tobacco/nicotine Alcohol intake: current Substance/Drug Use: never Pertinent Exam Findings alert, oriented x 3, operative site marked and procedure specific exam findings Please refer to detailed orthopedic examination on 11/15/2023: Examination of the right hand demonstrates patient has decreased motion and range of motion of the right index and right ring finger. Patient has tenderness palpation over the A1 garret of the right index finger and right ring finger patient has mechanical triggering and locking noted at these digits. Patient's fingertips are warm well-perfused brisk capillary refill less than 2 seconds sensations intact light touch distally. Examination of the left hand does demonstrate left ring finger mechanical triggering A1 garret tenderness palpation as well. Recommendations Surgery/Procedure today Other Plans: Plan to proceed to the OR today for a right index finger trigger release, right ring finger trigger release. Patient understands the ins and outs procedure the risk benefits complication alternatives surgery and through shared decision make elects proceed with surgical intervention today. All questions answered at this time. Coding Level of Care Code Acute Code for Chg Fwd
[2023-12-23] MEDS: ceFAZolin 2,000 MG in sodium chloride 0.9% (plus) 50 ML 100 MG IV (12:46)
[2023-12-23] MEDS: ROPivacaine 0.5% SDV 30 mL 25 MG INJECTION (13:09)
[2023-12-23] MEDS: lidocaine 1% 10 ML INJ 5 ML SUBCUT (13:09)
--- NOTE | 2023-12-23 13:41 | P.OP_ITS ---
Operative Report Date of procedure: December 23, 2023 Surgeon: Romel Gonzalez DO Procedure: Preoperative diagnosis: Right index finger trigger Right ring finger trigger Post-op diagnosis: Same Procedure done: Right Index finger?trigger?release Right ring finger trigger release Surgeon: Romel Gonzalez DO Estimated blood loss: 2cc Tourniquet time 9mins Complications: None Condition: stable Disposition: same day Brief History: Patient's been seen and worked up in the outpatient setting and findings consistent with preoperative diagnosis of right Index and ring finger?trigger.? Patient's failed conservative treatment.? Continues to have mechanical locking and catching.? Severe pain as well.? We talked about treatment options nonoperative versus operative intervention.? ?Patient understands the risk benefits complication alternatives of surgical nonsurgical treatment options.? Understanding his risks with surgery he elects proceed with surgical intervention.? Consent obtained.? Here today to proceed with surgical intervention.? All questions answered. Procedure: Patient was seen and evaluated in the preoperative holding area.? Consent was reviewed and signed with patient.? Seen evaluated by Anesthesia Department.? Once cleared for surgery was brought back to the operative suite.? Placed in supine position on the OR table all bony prominences well-padded patient properly secured to the bed.? Patient's right arm was then placed to the armboard.? A nonsterile tourniquet applied to the right upper arm.? Patient's right upper extremity was then prepped and draped in standard orthopedic fashion.? Final timeout performed.? Patient received appropriate preoperative antibiotics. Esmarch tourniquet was used exsanguinate the right upper extremity tourniquet insufflated to 250 mmHg. Under sterile aseptic technique local digital block was performed to the right Index and ring finger finger.? Once appropriately anesthetized a standard oblique incision was made centering over the A1 garret following patient's flexor crease to the right index finger.? Sharp scalpel incision was made only through skin and then switched to Littler dissection scissors and spread longitudinally directly over the flexor tendon sheath.? I then mobilized both radially and ulnarly and Kasdan retractors were used and placed by my corporate administrative assistant to protect neurovascular bundle.? Next I visualized the A1 garret and this was incised with a scalpel.? I then switched to dissection scissors and released the A1 garret both proximally as well as distally to its entirety.? Significant tendon sheath fluid was noted consistent with inflammation.? Mild fraying of the flexor tendons noted but no tear.? At this point I utilized a rag nail and pulled the tendons FDS and FDP out of the incision and no?triggering was noted. This point thorough irrigation was performed.? Once appropriately anesthetized a standard oblique incision was made centering over the A1 garret following patient's flexor crease of the right ring finger.? Sharp scalpel incision was made only through skin and then switched to Littler dissection scissors and spread longitudinally directly over the flexor tendon sheath.? I then mobilized both radially and ulnarly and Kasdan retractors were used and placed by my corporate administrative assistant to protect neurovascular bundle.? Next I visualized the A1 garret and this was incised with a scalpel.? I then switched to dissection scissors and released the A1 garret both proximally as well as distally to its entirety.? Significant tendon sheath fluid was noted consistent with inflammation.? Mild fraying of the flexor tendons noted but no tear.? At this point I utilized a rag nail and pulled the tendons FDS and FDP out of the incision and no?triggering was noted.? I then had anesthesia wake up the patient and patient was able to actively flex and extend fingers with no?triggering.? This point thorough irrigation was performed. Tourniquet deflated hemostasis satisfactory with bipolar.? I then subsequently closed the incision with interrupted nylon suture.? Xeroform 4 x 4's, Kerlix and an Cruz wrap was applied for a bulky soft dressing.? Patient was then subsequently awakened from anesthesia and taken to PACU in stable condition tolerated procedure without issues. Disposition: Patient taken back in stable condition recovering well.? Patient will receive appropriate discharge instruction as well as pain medication postoperatively.? Patient to follow-up with me in the office in 2 weeks for repeat evaluation and incision check.? Patient understands that any questions or concerns and contact the office.? All questions answered.
--- NOTE | 2023-12-23 13:41 | W.PM.BPON ---
Date of Procedure: 12/23/2023 Surgeon: Romle Gonzalez DO Deputy Clerk Of Superior Court(s): None Procedure(s) performed: Right index finger trigger release Right ring finger trigger release Findings of the procedure(s): Patient underwent procedure as planned without issues or complications Estimated blood loss: 2 mL Specimen(s) removed: None Post-operative diagnosis: Right index finger trigger, right ring finger trigger
--- NOTE | 2023-12-23 13:50 | PM.PACU ---
PACU note Narrative: Patient is a 73-year-old male that just underwent a Right index finger trigger release, Right ring finger trigger release. patient transferred to PACU in stable condition. Patient transferred to PACU in stable condition. Pain is well controlled. Dressing on hand is dry and in place. Patient's fingers are warm and well-perfused. Patient can wiggle fingers. normal cap refill under 2 seconds. Patient has normal elbow range of motion. sensation to hand intact. Exam: awake Disposition: discharged
[2023-12-23] MEDS: TRAMadol 50 mg Tablet PO (14:08)
--- NOTE | 2023-12-23 14:30 | ANE.PACU2 ---
Inpatient post-anesthesia follow up: Airway intact: Yes Vital signs: Temperature 97 F Pulse Rate 51 Respiratory Rate 18 Blood Pressure 145/77 Pulse Oximetry 99 Oxygen Delivery Me thod Room Air Oxygen Flow Rate Fraction of Inspir ed Oxygen Hydration adequate: Yes Nausea and vomiting: No Pain level: 1 Mental status: Baseline
== END 2023-12-23 14:31 | disposition home or self-care (01) ==
PROVIDERS: PCP Family Medicine; Visit Provider Student in an Organized Health Care Education/Training Program
PROC: (CPT 26055; principal; 2023-12-23 12:40)
DX: M65.321 Trigger finger, right index finger (principal); M65.341 Trigger finger, right ring finger; I25.10 Atherosclerotic heart disease of native coronary artery without angina pectoris; Z95.5 Presence of coronary angioplasty implant and graft; I10 Essential (primary) hypertension; E78.5 Hyperlipidemia, unspecified; Z79.82 Long term (current) use of aspirin
CPT/HCPCS: 26055 ×2; J0131; J0690; J2704; J2795; J3010; J7030

== ENCOUNTER → 2024-01-07 14:09 | Outpatient (BNVA) | payer MEDICARE, SELFPAY | PROVIDERS: PCP Family Medicine; Visit Provider Physician Assistant | DX: Z98.890 Other specified postprocedural states (principal) | CPT/HCPCS: 99024 ==

== ENCOUNTER 2024-01-16 18:37 | Emergency (ER) | payer MEDICARE, SELFPAY ==
[2024-01-16 18:43] VITALS: BP 159/96; PULSE 91; RESP 18; TEMP 36.6; O2SAT 98; BMI 29.5
--- NOTE | 2024-01-16 18:58 | W.ED.GENADLT ---
HPI - General Adult General: Chief complaint: General Medical Stated complaint: swelling at surgical site (surgery yesterday) Time Seen by Provider: 01/16/24 18:47 History of Present Illness: 73-year-old man who had a axillary lymph node biopsy yesterday at [facility] in [place]. He said he was doing fine until today whenever he went to pick himself felt out of a chair and he felt a pop and now he has bruising and swelling and pain in his left armpit. There is no active bleeding externally and the incision site appears intact. However there is quite a bit of bruising there. There is also swelling and tenderness. Related Data Home Medications Medication Instructions Recorded Confirmed aspirin 81 mg tablet,delayed 81 mg PO DAILY 08/02/20 01/07/24 release metoprolol tartrate 25 mg tablet 25 mg PO BID 08/02/20 01/07/24 simvastatin 40 mg tablet 40 mg PO DAILY 08/02/20 01/07/24 [id number] 1 cap PO TID 03/22/22 01/07/24 40,000-126,000-168,000 unit capsule, delay rel (Zenpep) ibuprofen 200 mg tablet (IBU-200) 200 mg PO Q6H PRN Pain 06/05/22 01/07/24 Previous Rx's Medication Instructions Recorded amlodipine 2.5 mg tablet 2.5 mg PO DAILY #90 tabs 01/07/23 tramadol 50 mg tablet 50 mg PO Q6H PRN pain #20 tabs 12/23/23 Allergies Allergy/AdvReac Type Severity Reaction Status Date / Time tolmetin [From Tolectin] Allergy Unknown ALGY-Hives Verified 01/16/24 18:46 Review of Systems Narrative: Constitutional symptoms: Negative except as documented in HPI. Skin symptoms: Negative except as documented in HPI. Eye symptoms: Negative except as documented in HPI. ENMT symptoms: Negative except as documented in HPI. Respiratory symptoms: Negative except as documented in HPI. Cardiovascular symptoms: Negative except as documented in HPI. Gastrointestinal symptoms: Negative except as documented in HPI. Genitourinary symptoms: Negative except as documented in HPI. Musculoskeletal symptoms: Negative except as documented in HPI. Neurologic symptoms: Negative except as documented in HPI. Psychiatric symptoms: Negative except as documented in HPI. Endocrine symptoms: Negative except as documented in HPI. PFSH ED PFSH: Medical History History of hypertension History of malignant neoplasm of ampulla of Vater History of hyperlipidemia Surgical History History of pancreatic surgery History of laminectomy History of thoracotomy History of coronary artery stent placement Social History Smoking and tobacco/nicotine status: never used tobacco/nicotine Alcohol intake: current Substance/Drug Use: never Physical Exam Narrative: EXAM NARRATIVE: General: Alert, no acute distress. Skin: Warm, dry. Left axilla there is a dressing in place over surgical site. There does not appear to be any active external bleeding. He does have quite a bit of bruising and some swelling in his axilla. It is tender to palpation. Head: Normocephalic, atraumatic. Neck: Supple, trachea midline. Eye: Extraocular movements are intact. Ears, nose, mouth and throat: mucosa moist. Cardiovascular: Regular, Normal peripheral perfusion. Respiratory: Lungs are clear to auscultation, respirations are non-labored, breath sounds are equal, Symmetrical chest wall expansion. Gastrointestinal: Soft, Nontender, Non distended Musculoskeletal: Normal ROM, no deformity. Neurological: Alert and oriented, No focal neurological deficit observed. Psychiatric: Cooperative, appropriate mood & affect. Course Vital Signs: Vital signs: Vital Signs Temperature 97.9 F 01/16/24 18:43 Pulse Rate 77 01/16/24 19:02 Respiratory Rate 18 01/16/24 19:22 Blood Pressure 164/106 01/16/24 19:02 Pulse Oximetry 98 01/16/24 19:22 Oxygen Delivery Me thod Room Air 01/16/24 19:02 MDM - General Adult Medical Decision Making Consultation: I spoke with general surgery here about the patient's case. He agrees there is nothing to do acutely. The wound is closed. He does have some bruising inside. Ice and compression and pain control. Follow-up with his operating surgeon. Assessment and plan: Postoperative complication Bruising ? IV Dilaudid and Zofran in the emergency room. - Discharged home - Discussed plan with patient. Answered any questions. - Evaluation and treatment of this problem were appropriate in the emergency setting. No radiology studies performed this visit Discharge Plan Discharge Patient Disposition: Home Clinical Impression: Postoperative complication Condition: Stable Prescriptions: No Action metoprolol tartrate 25 mg tablet 25 mg PO BID simvastatin 40 mg tablet 40 mg PO DAILY aspirin 81 mg tablet,delayed release (DR/EC) 81 mg PO DAILY Zenpep 40,000-126,000- 168,000 unit capsule,delayed release(DR/EC) 1 cap PO TID Rx Instructions: administer with meals and/or snacks ibuprofen [IBU-200] 200 mg tablet 200 mg PO Q6H PRN (Reason: Pain) amlodipine 2.5 mg tablet 2.5 mg PO DAILY Qty: 90 3RF tramadol 50 mg tablet 50 mg PO Q6H PRN (Reason: pain) Qty: 20 0RF Discharge Orders: Discharge ED (Routine); Ordered 01/16/24 Ordered By: Mickie Schuster Referrals: Ashia Del Rosario MD [Primary Care Provider] - Discharge Diet: Usual diet Discharge Activity: Limit activity as instructed Patient Instructions: Opioid Safety, Pain Management Activity Restrictions/Additional Instructions: Please call your surgeon tomorrow morning and see if they have any other instructions. Thank you for choosing [facility] for your healthcare needs today. Please realize this is an emergency room and that we are providing you with a medical screening exam and this may not be complete and all inclusive of all the testing and or work up that you may need to determine your ailment or severity of your illness. You have been screened and evaluated and felt safe for discharge. Health conditions do change or evolve sometimes and as such it is important that you follow up with your Primary Doctor to be re checked, 3-5 days is a general good time frame for follow up. You are always welcome to return to the ED for re assessment if your symptoms are worsening or you have new concerns Coding Level of Care Code ED Project Specialist for Maureen Fleming
[2024-01-16 19:02] VITALS: BP 164/106; PULSE 77; RESP 18; O2SAT 98
[2024-01-16 19:22] VITALS: RESP 18; O2SAT 98
[2024-01-16] MEDS: HYDROmorphone 1 mg/mL INJ 1 mL IVP (19:22)
[2024-01-16] MEDS: ondansetron 2 mg/ML SDV 2 mL 4 MG IVP (19:22)
[2024-01-16 19:47] VITALS: BP 153/104; PULSE 65; RESP 18; O2SAT 94
== END 2024-01-16 20:00 | disposition home or self-care (01) ==
PROVIDERS: Emergency Provider Emergency Medicine; PCP Family Medicine
DX: L76.32 Postprocedural hematoma of skin and subcutaneous tissue following other procedure (principal); Z79.82 Long term (current) use of aspirin; Z85.09 Personal history of malignant neoplasm of other digestive organs; I10 Essential (primary) hypertension; E78.5 Hyperlipidemia, unspecified
CPT/HCPCS: 96374; 96375; 99284; J1171; J2405

== ENCOUNTER 2024-01-23 21:15 | Emergency (ER) | payer MEDICARE, SELFPAY ==
[2024-01-23 21:24] VITALS: BP 181/110; PULSE 76; RESP 18; TEMP 36.4; O2SAT 98; BMI 30.2
[2024-01-23 21:38] VITALS: BP 162/99; PULSE 69; RESP 14; O2SAT 98
--- NOTE | 2024-01-23 21:44 | W.ED.WOUNDLC ---
HPI - Wound/Laceration General: Chief Complaint: Wound/Laceration Stated Complaint: Surgery Stiches came Loose Time Seen by Provider: 01/23/24 21:32 History of Present Illness: Patient was with complaints of his left surgical incision bleeding. He has approximately a 2 inch incision on his left lateral chest wall from a lymph node biopsy done approximately 1 week ago and has been doing well up until today when he started bleeding. Patient still has original dressing on it. Patient has appointment to see his original surgeon on Saturday which is approximately 4 days. Patient has no other complaints at this time. Related Data Home Medications Medication Instructions Recorded Confirmed aspirin 81 mg tablet,delayed 81 mg PO DAILY 08/02/20 01/07/24 release metoprolol tartrate 25 mg tablet 25 mg PO BID 08/02/20 01/07/24 simvastatin 40 mg tablet 40 mg PO DAILY 08/02/20 01/07/24 [id number] 1 cap PO TID 03/22/22 01/07/24 40,000-126,000-168,000 unit capsule, delay rel (Zenpep) ibuprofen 200 mg tablet (IBU-200) 200 mg PO Q6H PRN Pain 06/05/22 01/07/24 Previous Rx's Medication Instructions Recorded tramadol 50 mg tablet 50 mg PO Q6H PRN pain #20 tabs 12/23/23 amlodipine 2.5 mg tablet 2.5 mg PO DAILY #90 tabs 01/22/24 Allergies Allergy/AdvReac Type Severity Reaction Status Date / Time tolmetin [From Tolectin] Allergy Unknown ALGY-Hives Verified 01/16/24 18:46 Review of Systems General: Reports: 10 or more systems reviewed and unremarkable except in HPI and below PFSH ED PFSH: Medical History History of hypertension History of malignant neoplasm of ampulla of Vater History of hyperlipidemia Surgical History History of pancreatic surgery History of laminectomy History of thoracotomy History of coronary artery stent placement Social History Smoking and tobacco/nicotine status: never used tobacco/nicotine Alcohol intake: current Substance/Drug Use: never Physical Exam Const: COMMON NORMALS: no acute distress, average body habitus, patient oriented x3, no limitations, healthy appearing, alert and well nourished HENMT: COMMON NORMALS: normocephalic, atraumatic, hearing grossly normal bilaterally, external ears normal, Normal external nose present and moist oral mucous membranes HEAD & SCALP: normocephalic and atraumatic NOSE: Normal external nose present EXTERNAL EAR: Yes external ears normal Neck/C-Spine: COMMON NORMALS: full ROM, no lymphadenopathy, supple, no meningeal signs, no JVD and Thyroid normal THYROID: Thyroid normal Chest: OTHER: Left lateral chest wall bruise, about 2 inch surgical incision clean and intact. Minimal amount of blood oozing from lower portion of it. Once cleaned up had stopped bleeding. Resp: COMMON NORMALS: normal respiratory effort, No retractions, No use of accessory muscles and clear to auscultation bilaterally AUSCULTATION: clear to auscultation bilaterally Cardio: COMMON NORMALS: no JVD, regular rate, regular rhythm, S1 normal heart sound present, S2 normal heart sound present, No gallops present (Cardio), No clicks present (Cardio), No murmurs present (Cardio) and No rub (Cardio) RATE: regular rate RHYTHM: regular rhythm HEART SOUNDS: S1 normal heart sound present and S2 normal heart sound present GI: COMMON NORMALS: Normal to inspection, nondistended, normoactive bowel sounds present, Soft to palpation, non-tender, No hepatosplenomegaly present and no masses PALPATION: Yes Soft to palpation and Yes No hepatosplenomegaly present Neuro: COMMON NORMALS: patient oriented x3 SENSORIUM/ORIENTATION: Yes alert MENINGEAL SIGNS: Yes no meningeal signs Course Vital Signs: Vital signs: Vital Signs Temperature 97.6 F 01/23/24 21:24 Pulse Rate 69 01/23/24 21:38 Respiratory Rate 14 01/23/24 21:38 Blood Pressure 162/99 01/23/24 21:38 Pulse Oximetry 98 01/23/24 21:38 Oxygen Delivery Me thod Room Air 01/23/24 21:38 MDM - Wound/Laceration Medical Decision Making Incision was cleaned redressed patient observed in the ER he did not bleed. Patient be discharged home. Medical Records I reviewed the patient's medical records. Lab Data I reviewed the patient's lab results. No radiology studies performed this visit Discharge Plan Discharge Patient Disposition: Home Clinical Impression: Postoperative complication Qualifiers: Surgical complication system/body Area: [id number] Condition: Stable Prescriptions: No Action metoprolol tartrate 25 mg tablet 25 mg PO BID simvastatin 40 mg tablet 40 mg PO DAILY aspirin 81 mg tablet,delayed release (DR/EC) 81 mg PO DAILY Zenpep 40,000-126,000- 168,000 unit capsule,delayed release(DR/EC) 1 cap PO TID Rx Instructions: administer with meals and/or snacks ibuprofen [IBU-200] 200 mg tablet 200 mg PO Q6H PRN (Reason: Pain) amlodipine 2.5 mg tablet 2.5 mg PO DAILY Qty: 90 3RF tramadol 50 mg tablet 50 mg PO Q6H PRN (Reason: pain) Qty: 20 0RF Discharge Orders: Discharge ED (Routine); Ordered 01/23/24 Ordered By: Payam Ghosh Referrals: Ashia Del Rosario MD [Primary Care Provider] - 1 week Patient Instructions: Postoperative Bleeding (ED) Activity Restrictions/Additional Instructions: Thank you for choosing [facility] for your healthcare needs today. Please realize that you were seen in the emergency department and that we are providing you with an emergency medical screening exam and this may not be a complete and all exclusive of all testing and/or medical workup we may need to determine your element or severity of your illness. It is very important that you follow-up as instructed with your primary care provider or specialist for the additional evaluation and to discuss your medical treatment plan. You may return to the emergency department should you have concerns or if your condition changes or worsens in any way. Coding Level of Care Code ED [employer] for Maureen Fleming
[2024-01-23 23:15] VITALS: BP 159/100; PULSE 64; RESP 14; O2SAT 99
== END 2024-01-23 23:17 | disposition home or self-care (01) ==
PROVIDERS: Emergency Provider Emergency Medicine; PCP Family Medicine
DX: L76.22 Postprocedural hemorrhage of skin and subcutaneous tissue following other procedure (principal)
CPT/HCPCS: 99281

== ENCOUNTER → 2024-05-07 14:07 | Outpatient (BNVA) | payer MEDICARE, SELFPAY | PROVIDERS: PCP Family Medicine; Visit Provider Nurse Practitioner Family | DX: D22.39 Melanocytic nevi of other parts of face (principal); L82.1 Other seborrheic keratosis; L81.4 Other melanin hyperpigmentation; L57.8 Other skin changes due to chronic exposure to nonionizing radiation; Z85.820 Personal history of malignant melanoma of skin; Z08 Encounter for follow-up examination after completed treatment for malignant neoplasm; Z85.828 Personal history of other malignant neoplasm of skin; L57.0 Actinic keratosis; L82.0 Inflamed seborrheic keratosis; L53.8 Other specified erythematous conditions; R20.8 Other disturbances of skin sensation; Z78.9 Other specified health status | CPT/HCPCS: 17004; 17110; 99213 ==

== ENCOUNTER → 2024-07-30 15:06 | Outpatient (BNVA) | payer MEDICARE, SELFPAY | PROVIDERS: PCP Family Medicine; Visit Provider Internal Medicine | DX: I25.10 Atherosclerotic heart disease of native coronary artery without angina pectoris (principal); Z95.5 Presence of coronary angioplasty implant and graft; Z86.79 Personal history of other diseases of the circulatory system; Z86.39 Personal history of other endocrine, nutritional and metabolic disease; Z87.891 Personal history of nicotine dependence; M25.571 Pain in right ankle and joints of right foot | CPT/HCPCS: 99214 ==

== ENCOUNTER → 2024-08-11 14:33 | Outpatient (BNVA) | payer MEDICARE, SELFPAY | PROVIDERS: PCP Family Medicine; Visit Provider Dermatology | DX: S80.862A Insect bite (nonvenomous), left lower leg, initial encounter (principal); S40.862A Insect bite (nonvenomous) of left upper arm, initial encounter; X58.XXXA Exposure to other specified factors, initial encounter; D22.39 Melanocytic nevi of other parts of face; D22.5 Melanocytic nevi of trunk; L82.1 Other seborrheic keratosis; L81.4 Other melanin hyperpigmentation; L57.8 Other skin changes due to chronic exposure to nonionizing radiation; B35.1 Tinea unguium; Z85.820 Personal history of malignant melanoma of skin; Z08 Encounter for follow-up examination after completed treatment for malignant neoplasm; Z85.828 Personal history of other malignant neoplasm of skin; L57.0 Actinic keratosis | CPT/HCPCS: 17000; 99213 ==

== ENCOUNTER → 2024-08-26 09:20 | Outpatient (BNVA) | payer MEDICARE, SELFPAY | PROVIDERS: PCP Family Medicine; Visit Provider Podiatrist Foot & Ankle Surgery | DX: M25.571 Pain in right ankle and joints of right foot (principal); M79.671 Pain in right foot; M76.71 Peroneal tendinitis, right leg; Q66.71 Congenital pes cavus, right foot | CPT/HCPCS: 73610; 73620; 99203 ==

== ENCOUNTER → 2024-12-01 11:22 | Outpatient (BNVA) | payer MEDICARE, SELFPAY | PROVIDERS: PCP Family Medicine; Visit Provider Nurse Practitioner Family | DX: L40.8 Other psoriasis (principal); L82.1 Other seborrheic keratosis; D18.01 Hemangioma of skin and subcutaneous tissue; L81.4 Other melanin hyperpigmentation; L57.8 Other skin changes due to chronic exposure to nonionizing radiation; S80.862A Insect bite (nonvenomous), left lower leg, initial encounter; S40.862A Insect bite (nonvenomous) of left upper arm, initial encounter; X58.XXXA Exposure to other specified factors, initial encounter; Z85.820 Personal history of malignant melanoma of skin; Z08 Encounter for follow-up examination after completed treatment for malignant neoplasm; Z85.828 Personal history of other malignant neoplasm of skin; L57.0 Actinic keratosis | CPT/HCPCS: 17000; 99214 ==

== ENCOUNTER 2024-12-16 14:45 | Oncology outpatient (recurring) (ONCR) | payer MEDICARE, SELFPAY ==
[2024-12-16 15:56] LABS: Hematocrit 48.4 % (37-53); Hemoglobin 16.00 g/dL (11.27-16.99); Mean Corpuscular HGB Conc 33.1 g/dL (30-55); Mean Corpuscular Hemoglobin 30.1 pg (27-33); Mean Corpuscular Volume 91.0 fl (82-101); Nucleated Red Blood Cells % 0 %; Platelet Count 231 10^3/cmm (157-399); Red Blood Count 5.32 10^6/uL (3.85-5.65); White Blood Count 8.38 10^3/uL (3.29-11.43)
[2024-12-16 16:08] LABS: Alanine Aminotransferase 38 U/L (0-41); Albumin Level 4.3 g/dL (3.5-5.2); Alkaline Phosphatase 95 U/L (40-130); Anion Gap 14.3 (5-19); Aspartate Amino Transferase 32 U/L (0-40); Blood Urea Nitrogen 15 mg/dL (8-23); Calcium 8.6 mg/dL (8.5-10.5); Carbon Dioxide 25 mmol/L (22-29); Chloride 105 mmol/L (98-107); Creatinine Clr Calc Pharmacy 80.5884; Globulin 2.6 g/dL (1.3-4.6); Glucose 88 mg/dL (65-115); Osmolality Calculated 290 mOsm/kg (285-295); Potassium 4.3 mmol/L (3.5-5.1); Sodium 140 mmol/L (136-145); Total Protein 6.9 g/dL (6.6-8.7)
== END 2025-01-01 23:59 | disposition home or self-care (01) ==
PROVIDERS: PCP Family Medicine; Visit Provider Internal Medicine
DX: Z08 Encounter for follow-up examination after completed treatment for malignant neoplasm (principal); Z85.09 Personal history of malignant neoplasm of other digestive organs; Z85.820 Personal history of malignant melanoma of skin; Z87.891 Personal history of nicotine dependence; Z92.21 Personal history of antineoplastic chemotherapy; Z92.3 Personal history of irradiation; Z79.899 Other long term (current) drug therapy
CPT/HCPCS: 36415; 80053; 83615; 85025; 99204

== ENCOUNTER 2025-01-12 14:13 | Outpatient (CLI) | payer MEDICARE, SELFPAY | END 2025-01-12 14:14 | disposition home or self-care (01) | LOC: SPT 14:14 | PROVIDERS: PCP Family Medicine; Visit Provider Podiatrist Foot & Ankle Surgery | DX: Z46.89 Encounter for fitting and adjustment of other specified devices (principal); M76.71 Peroneal tendinitis, right leg; M25.571 Pain in right ankle and joints of right foot; Q66.71 Congenital pes cavus, right foot | CPT/HCPCS: L3030 ==

== ENCOUNTER → 2025-02-04 15:03 | Outpatient (BNVA) | payer MEDICARE, SELFPAY | PROVIDERS: Visit Provider Internal Medicine | DX: I25.10 Atherosclerotic heart disease of native coronary artery without angina pectoris (principal); I10 Essential (primary) hypertension; Z87.891 Personal history of nicotine dependence; E78.5 Hyperlipidemia, unspecified | CPT/HCPCS: 99213 ==